=== PATIENT | female | born 1945 | race Two or more races ===

== ENCOUNTER → 2016-08-11 | Outpatient (CLI) | payer MEDICARE ==
[~2016-08-11] MED LIST: ACET2SOL EACH EAR; BENZ100 PO; CALC200S NASAL; CALCCHW25 CHEW; CARV12.52 PO; CETI10 PO; CILO100T PO; ERGO1CAP30 PO; FLUT50SP EACH NARE; LOSA50TA PO; METF1000 PO; METF500T PO; MOBI15TA PO; NOVO7030P2 INJ; PRAV40TA2 PO; RANI150C PO; VICT18IN SQ
[2016-08-11 09:10] LABS: ANION GAP 9 MEQ/L (5-15); BICARBONATE 29.3 MEQ/L (21.0-32.0); BLOOD UREA NITROGEN 13 MG/DL (7-18); CHLORIDE 105 MEQ/L (98-107); GLOMERULAR FILTRATION RATE 76 ML/MIN (>89); GLUCOSE,FASTING 127 MG/DL (74-99); POTASSIUM 4.1 MEQ/L (3.5-5.1); SODIUM (NA) 143 MEQ/L (136-145)
[2016-08-11 11:42] LABS: HEMOGLOBIN A1a 1.1 %; HEMOGLOBIN A1b 2.2 %; HEMOGLOBIN Ao 80.9 %; HEMOGLOBIN LA1C 2.5 %; HEMOGLOBIN P3 4.4 %
== END ==
LOC: CLAB 08:06
PROVIDERS: ATTEND Family Medicine
DX: E11.9 Type 2 diabetes mellitus without complications (principal)
CPT/HCPCS: 36415; 80048; 82043; 83036

== ENCOUNTER → 2017-03-19 | Day surgery (SDC) | payer MEDICARE ==
[~2017-03-19] VITALS: Ht 162.6 cm; Wt 89.0 kg
[~2017-03-19] MED LIST changes: +*ONDANSETRON 4 MG VIAL PERIprocedural Use ONLY ONE; +ACETAMINOPHEN/HYDROcodone 325 MG/5 MG TAB PO ONE; +BUPIVACAINE/EPINEPHRINE 0.25% 50 ML VIAL ONE; -CALC200S NASAL; -CALCCHW25 CHEW; +CHLORHEXIDINE GLUCONATE 2 % 1 PACK (2 CLOTHS) TOPICAL PRN; +DO NOT ADM ANY ANTICOAGULANT DRUGS PRN; -ERGO1CAP30 PO; +FAMO40TA PO; +GLYCOPYRROLATE 1 MG/5 ML SYRINGE IV PUSH ONE; +HUMU70IN SQ; +LACTATED RINGER'S 1000 ML IV PRN; +LIDOCAINE HCL 1% PF 5 ML SYRINGE OTHER ONE; -LOSA50TA PO; -METF500T PO; +METOPROLOL TARTRATE 25 MG TAB PO PRN; +METOPROLOL TARTRATE 5 MG/5 ML VIAL IV PUSH ONE; +NEOSTIGMINE 5 MG/5 ML SYRINGE IV PUSH ONE; -NOVO7030P2 INJ; +ONDANSETRON HCL 4 MG/2 ML VIAL IV ONE; +ONDANSETRON HCL 4 MG/2 ML VIAL IV PUSH ONE; +POVIDONE IODINE 5% (ANTISEPSIS KIT) 4 APPLICATIONS EACH NARE PRN; +PROPOFOL 200 MG/20 ML AMP IV ONE; -RANI150C PO; +ROCURONIUM INJ 50 MG/5 ML SYRINGE IV PUSH ONE; +SODIUM CHLORID 0.9% 500 ML IV PRN; +SUGAMMADEX SODIUM 200 MG/2 ML VIAL IV PUSH ONE; +VANCOMYCIN 1000 MG/NS 250 ML ON-CALL IV SCH; -VICT18IN SQ; +ePHEDrine/NS 25 MG/5 ML SYRINGE IV ONE
[2017-03-19 09:43] LABS: AUTOMATED NEUTROPHIL # 3.8 TH/MM3 (1.8-7.7); BASOPHIL % 0.6 % (0.0-2.0); EOSINOPHIL # 0.1 TH/MM3 (0-0.4); EOSINOPHIL % 1.6 % (0.0-4.0); HEMATOCRIT 36.4 % (35.0-46.0); HEMOGLOBIN 11.8 GM/DL (11.6-15.3); LYMPH % 30.3 % (9.0-44.0); LYMPHOCYTE # 1.9 TH/MM3 (1.0-4.8); MEAN CELL VOLUME 81.5 FL (80.0-100.0); MEAN CORPUSCULAR HEMOGLOBIN 26.3 PG (27.0-34.0); MEAN CORPUSCULAR HGB CONC 32.3 % (32.0-36.0); MONOCYTE # 0.4 TH/MM3 (0-0.9); NEUT % 60.5 % (16.0-70.0); PLATELET COUNT 179 TH/MM3 (150-450); RED BLOOD COUNT 4.47 MIL/MM3 (4.00-5.30); WHITE BLOOD COUNT 6.3 TH/MM3 (4.0-11.0)
[2017-03-19 10:01] LABS: ALBUMIN 3.3 GM/DL (3.4-5.0); CREATININE 0.75 MG/DL (0.50-1.00)
[2017-03-19 10:02] LABS: DIRECT BILIRUBIN ADULT 0.1 MG/DL (0.0-0.2)
[2017-03-19 10:04] LABS: INDIRECT BILIRUBIN 0.2 MG/DL (0.0-0.8); TOTAL BILIRUBIN ADULT 0.3 MG/DL (0.2-1.0); TOTAL PROTEIN 7.3 GM/DL (6.4-8.2)
--- NOTE | 2017-03-19 10:33 | HHI.PR ---
Immediate Post Op Note Procedure Date: Mar 19, 2017 Pre Op Diagnosis: symptomatic cholelithiasis Post Op Diagnosis: same Surgeon: Naresh Colon MD [employer] Instructor(s): see or sheet Procedure: lap fozia Findings: gallbladder with multiple stones Complications: none Specimen(s) removed: gallbladder Estimated blood loss: 5cc Anesthesia: General Drains: None Patient to: PACU Patient Condition: Good Naresh Colon MD Mar 19, 2017 10:33
[2017-03-19 13:30] VITALS: PULSE 48; RESP 20; TEMP 97.6; O2SAT 98
[2017-03-19 13:50] VITALS: BP 130/64
--- NOTE | 2017-03-19 15:57 | EKG ---
Date Performed: 03/19/2017 Time Performed: 09:00:16 PTAGE: 71 years EKG: Sinus rhythm MODERATE T-WAVE ABNORMALITY, CONSIDER LATERAL ISCHEMIA ABNORMAL ECG NO PREVIOUS TRACING DOCTOR: Crystal Baez Interpretating Date/Time 03/19/2017 15:55:28
--- NOTE | 2017-03-19 17:23 | MP ---
cc: SHELBI COLON MD DATE OF SURGERY 03/19/17 PREOPERATIVE DIAGNOSIS Symptomatic cholelithiasis. POSTOPERATIVE DIAGNOSIS Symptomatic cholelithiasis. PROCEDURE PERFORMED Laparoscopic cholecystectomy SURGEON Dr. Sandrita Colon [employer] SUPER[employer] See OR sheet ANESTHESIA GETA IV FLUIDS See anesthesia sheet ESTIMATED BLOOD LOSS 5 mL. DRAINS None COMPLICATIONS None. WOUND CLASSIFICATION Clean contaminated. SPECIMENS Gallbladder FINDINGS Distended gallbladder with multiple gallstones. INDICATION The patient is a 71-hour-old female who presents with onset of right upper quadrant pain. She has had this pain intermittently for a while now and she came to the emergency department for further evaluation including CT scan showing multiple gallstones. Therefore, further decision was made for a laparoscopic cholecystectomy. PROCEDURE IN DETAIL The patient was taken to the operating suite, placed in supine position. She was prepped and draped in usual sterile fashion after induction of general endotracheal anesthesia. Brief time-out done stating correct patient, procedure, surgical site and all were in agreement with this. Attention was first direct to the umbilicus where a stab milli incision was made with an 11-blade. A Veress needle was placed and abdominal placement confirmed with a saline drop test. Abdomen insufflated to 15 mm pneumoperitoneum. The Veress needle changed for a 5-mm scope and a Visiport. Three other ports placed including a 12 mm epigastric and two 5 mm right subcostal ports. The patient was then placed in reverse Trendelenburg and airplaned to the left. There was noted to be somewhat of a fatty liver and fatty omentum, however, gallbladder was identified, grasped and retracted cephalad. The [place] was used and hook electro Bovie cautery to dissect out the cystic duct and cystic artery in the usual fashion. The cystic artery had two clips placed proximal and one distal and endo was used to transect this. The cystic duct noted to be somewhat large, therefore, dome down approach embarked and hook electro cautery done until down to the cystic duct. Two Endoloops placed proximal around the cystic duct and one distal and this was used to transect the cystic duct. Gallbladder was placed in the EndoCatch bag and removed from the epigastric port. Suction irrigation used. Hemostasis obtained to the gallbladder fossa. No evidence of spillage of bile or stones noted. Nexst, pneumoperitoneum was removed. The ports were removed. The 12-mm port was closed with a 0 Vicryl in [id number] fashion. 4-0 Monocryl was used for subcuticular sutures to the skin, Steri-Strips and Mastisol placed for sterile dressings. The patient tolerated procedure. No intraoperative complications. The patient was extubated and taken stable to the PACU. MD ABDELRAHMAN Paz/ /11:27 AM /4:55 PM
== END | disposition home or self-care (01) ==
LOC: HSDC 08:05
PROVIDERS: ATTEND Surgery
DX: K80.10 Calculus of gallbladder with chronic cholecystitis without obstruction (principal); I10 Essential (primary) hypertension; E11.9 Type 2 diabetes mellitus without complications; E78.2 Mixed hyperlipidemia; Z01.810 Encounter for preprocedural cardiovascular examination; K44.9 Diaphragmatic hernia without obstruction or gangrene
CPT/HCPCS: 00790; 47562; 80048; 80076; 82948; 85025; 88304; 93005; 94150; J2405; J2710; J3010; J3370; J7050; J7120

== ENCOUNTER 2017-04-07 09:59 | Emergency (ER) | payer MEDICARE ==
[~2017-04-07] VITALS: Ht 160 cm; Wt 86.1 kg
[~2017-04-07 09:59] MED LIST changes: -*ONDANSETRON 4 MG VIAL PERIprocedural Use ONLY ONE; -ACET2SOL EACH EAR; -ACETAMINOPHEN/HYDROcodone 325 MG/5 MG TAB PO ONE; -BENZ100 PO; -BUPIVACAINE/EPINEPHRINE 0.25% 50 ML VIAL ONE; -CHLORHEXIDINE GLUCONATE 2 % 1 PACK (2 CLOTHS) TOPICAL PRN; -DO NOT ADM ANY ANTICOAGULANT DRUGS PRN; -GLYCOPYRROLATE 1 MG/5 ML SYRINGE IV PUSH ONE; -LACTATED RINGER'S 1000 ML IV PRN; -LIDOCAINE HCL 1% PF 5 ML SYRINGE OTHER ONE; -METOPROLOL TARTRATE 25 MG TAB PO PRN; -METOPROLOL TARTRATE 5 MG/5 ML VIAL IV PUSH ONE; -NEOSTIGMINE 5 MG/5 ML SYRINGE IV PUSH ONE; -ONDANSETRON HCL 4 MG/2 ML VIAL IV ONE; -ONDANSETRON HCL 4 MG/2 ML VIAL IV PUSH ONE; -POVIDONE IODINE 5% (ANTISEPSIS KIT) 4 APPLICATIONS EACH NARE PRN; -PROPOFOL 200 MG/20 ML AMP IV ONE; -ROCURONIUM INJ 50 MG/5 ML SYRINGE IV PUSH ONE; -SODIUM CHLORID 0.9% 500 ML IV PRN; -SUGAMMADEX SODIUM 200 MG/2 ML VIAL IV PUSH ONE; -VANCOMYCIN 1000 MG/NS 250 ML ON-CALL IV SCH; -ePHEDrine/NS 25 MG/5 ML SYRINGE IV ONE
[2017-04-07 10:04] VITALS: BP 199/82; PULSE 85; RESP 18; TEMP 100.6; O2SAT 99
[2017-04-07] MEDS ORDERED: ACETAMINOPHEN 325 MG TAB PO ONE (10:45)
--- NOTE | 2017-04-07 11:04 | PD ---
HPI Chief Complaint: Cold / Flu Symptoms Time Seen by Provider: 10:16 Travel History International Travel<30 days: No Contact w/Intl Traveler<30days: No Traveled to known affect area: No History of Present Illness HPI Patient is a 71-year-old female presents emergency Department with her daughter for evaluation of cough congestion fever and body aches for the past 36-48 hours. Patient states symptoms are gradually worsening, no other sick contacts , did not get a flu shot this year, is a diabetic. She denies any chest pain shortness breath abdominal pain nausea vomiting or diarrhea. Symptoms for the past 36-48 hours, gradually worsening, associated signs symptoms and context as above. PFSH Past Medical History Cancer: No Cardiovascular Problems: Yes High Cholesterol: Yes Diabetes: Yes Patient Takes Glucophage: No Endocrine: Yes Gastrointestinal Disorders: Yes (GALLBLADDER) Genitourinary: No Hepatitis: No Hiatal Hernia: No Hypertension: Yes Musculoskeletal: Yes (INTERMITTENT CLAUDICATION) Psychiatric: No Reproductive: No Respiratory: No ?: Not Menopausal: Yes Past Surgical History Abdominal Surgery: Yes (HERNIA) Gynecologic Surgery: Yes (CSECTION) Joint Replacement: No Other Surgery: Yes Social History Alcohol Use: No Tobacco Use: No Substance Use: No Allergies-Medications (Allergen,Severity, Reaction): Coded Allergies: aspirin (Verified Allergy, Intermediate, 03/19/17) codeine (Verified Allergy, Intermediate, Dizziness, 03/19/17) penicillin G (Verified Allergy, Intermediate, 03/19/17) Reported Meds & Prescriptions Reported Meds & Active Scripts Active Tamiflu (Oseltamivir Phosphate) 75 Mg Cap 75 Mg PO BID 5 Days Zofran (Ondansetron HCl) 4 Mg Tab 4 Mg PO Q6HR PRN Humulin 70-30 Inj (Insulin NPH Isophane-Reg (Human) 70-30 Inj) 1,000 Unit/10 Ml Vial 15 Units SQ HS Humulin 70-30 Inj (Insulin NPH Isophane-Reg (Human) 70-30 Inj) 1,000 Unit/10 Ml Vial 30 Units SQ AC BREAKFAST Famotidine 40 Mg Tab 40 Mg PO HS Carvedilol 12.5 Mg Tab 1 Tab PO BID Metformin (Metformin HCl) 1,000 Mg Tab 1,000 Mg PO BIDPC With meals Pravastatin 40 Mg Tab 40 Mg PO DAILY Fluticasone Nasal [place] 50 Mcg/Act Naspr 1 [place] EACH NARE BID 50 mcg/spray Review of Systems Except as stated in HPI: all other systems reviewed are Neg Physical Exam Narrative GENERAL: Well-developed well-nourished, nontoxic appearance. SKIN: Focused skin assessment warm/dry. HEAD: Atraumatic. Normocephalic. EYES: Pupils equal and round. No scleral icterus. No injection or drainage. ENT: No nasal bleeding or discharge. Mucous membranes pink and moist. TMs clear bilaterally, oropharynx minimally erythematous but no swelling and uvula midline. NECK: Trachea midline. No JVD. CARDIOVASCULAR: Regular rate and rhythm. No murmur appreciated. RESPIRATORY: No accessory muscle use. Clear to auscultation. Breath sounds equal bilaterally. GASTROINTESTINAL: Abdomen soft, non-tender, nondistended. Hepatic and splenic margins not palpable. MUSCULOSKELETAL: No obvious deformities. No clubbing. No cyanosis. No edema. NEUROLOGICAL: Awake and alert. No obvious cranial nerve deficits. Motor grossly within normal limits. Normal speech. PSYCHIATRIC: Appropriate mood and affect; insight and judgment normal. Data Data Last Documented VS Vital Signs Date Time Temp Pulse Resp B/P (MAP) Pulse Ox O2 Delivery O2 Flow Rate FiO2 04/07/17 12:31 64 18 168/60 (96) 95 04/07/17 11:55 101.0 Orders Orders Chest, Pa & Lat (04/07/17 ) Bedside Glucose RIVKA.CSUGAR (04/07/17 10:38) Acetaminophen (Tylenol) (04/07/17 10:45) Ed Discharge Order (04/07/17 12:02) MDM Medical Decision Making Medical Screen Exam Complete: Yes Emergency Medical Condition: Yes Differential Diagnosis Influenza, viral illness, URI, pneumonia Narrative Course Patient roomed in emergency department, symptoms highly consistent with influenza. Chest x-ray negative, blood glucose is reasonable. Discussed with her symptomatic management, Tamiflu, returned ED criteria. She stable for discharge. Last 24 hours Impressions Chest X-Ray 04/07/17 0000 Signed Impressions: Service Date/Time: Friday, April 07, 2017 10:48 - CONCLUSION: No acute disease. Gianni Kiran Jr., MD Diagnosis Primary Impression: Influenza Med/Other Pt SpecificInfo: Prescription(s) given Scripts Oseltamivir (Tamiflu) 75 Mg Cap 75 MG PO BID for Mgmt Viral Infection for 5 Days, #10 CAP 0 Refills Prov: Adrian Chaidez MD 04/07/17 Ondansetron (Zofran) 4 Mg Tab 4 MG PO Q6HR Y for NAUSEA OR VOMITING, #20 TAB 0 Refills Prov: Adrian Chaidez MD 04/07/17 Disposition: 01 DISCHARGE HOME Condition: Stable Adrian Chaidez MD Apr 07, 2017 11:04
--- NOTE | 2017-04-07 11:14 | RADRPT ---
EXAM DATE/TIME: 04/07/2017 10:48 [facility] COMPARISON: No previous studies available for comparison. INDICATIONS : Cough, congestion. MEDICAL HISTORY : Diabetes mellitus type II. Hypertension Hypercholesterolemia. SURGICAL HISTORY : section. ENCOUNTER: Initial ACUITY: 2 days PAIN SCORE: 0/10 LOCATION: Bilateral chest FINDINGS: PA and lateral views of the chest demonstrate the lungs to be symmetrically aerated without evidence of mass, infiltrate or effusion. The cardiomediastinal contours are unremarkable. Osseous structure s are intact. CONCLUSION: No acute disease. Gianni Kiran Jr., MD on April 07, 2017 at 11:11 Board Certified Radiologist. This report was verified electronically.
[2017-04-07 11:55] VITALS: TEMP 101
[2017-04-07] MEDS ORDERED: ZOFR4TAB PO (12:02)
[2017-04-07] MEDS ORDERED: OSEL75 PO (12:02)
[2017-04-07 12:31] VITALS: BP 168/60
== END 2017-04-07 12:31 | disposition home or self-care (01) ==
LOC: PHED 09:59
DX: J11.1 Influenza due to unidentified influenza virus with other respiratory manifestations (principal); I10 Essential (primary) hypertension; E78.00 Pure hypercholesterolemia, unspecified; E11.9 Type 2 diabetes mellitus without complications; Z88.0 Allergy status to penicillin; Z88.5 Allergy status to narcotic agent; Z79.4 Long term (current) use of insulin; Z79.84 Long term (current) use of oral hypoglycemic drugs; Z79.899 Other long term (current) drug therapy
CPT/HCPCS: 71046; 99284

== ENCOUNTER → 2017-06-15 | Outpatient (CLI) | payer MEDICARE ==
[~2017-06-15] MED LIST changes: -CETI10 PO; -CILO100T PO; -MOBI15TA PO; +OSEL75 PO; +ZOFR4TAB PO
[2017-06-15 10:09] LABS: HEMATOCRIT 36.8 % (35.0-46.0); HEMOGLOBIN 11.7 GM/DL (11.6-15.3); MEAN CELL VOLUME 80.7 FL (80.0-100.0); MEAN CORPUSCULAR HEMOGLOBIN 25.7 PG (27.0-34.0); MEAN CORPUSCULAR HGB CONC 31.8 % (32.0-36.0); MEAN PLATELET VOLUME 9.7 FL (7.0-11.0); PLATELET COUNT 160 TH/MM3 (150-450); RED BLOOD COUNT 4.56 MIL/MM3 (4.00-5.30); RED CELL DISTRIBUTION WIDTH 15.4 % (11.6-17.2); WHITE BLOOD COUNT 4.6 TH/MM3 (4.0-11.0)
[2017-06-15 10:33] LABS: ALBUMIN 3.4 GM/DL (3.4-5.0); BICARBONATE 32.1 MEQ/L (21.0-32.0); BLOOD UREA NITROGEN 17 MG/DL (7-18); CHLORIDE 104 MEQ/L (98-107); CREATININE 0.75 MG/DL (0.50-1.00); GLOMERULAR FILTRATION RATE 76 ML/MIN (>89); GLUCOSE,FASTING 142 MG/DL (74-99); SODIUM (NA) 142 MEQ/L (136-145)
[2017-06-15 10:44] LABS: ALKALINE PHOSPHATASE 79 U/L (45-117); ALT (GPT) 19 U/L (10-53); AST (GOT) 12 U/L (15-37); TOTAL BILIRUBIN ADULT 0.3 MG/DL (0.2-1.0); TOTAL PROTEIN 7.6 GM/DL (6.4-8.2)
[2017-06-15 15:48] LABS: HEMOGLOBIN A1C 7.7 % (4.3-6.0)
== END ==
LOC: CLAB 09:34
PROVIDERS: ATTEND Family Medicine
DX: E11.9 Type 2 diabetes mellitus without complications (principal)
CPT/HCPCS: 36415; 80053; 82043; 83036; 85027